=== PATIENT | female | born 1995 | race Caucasian/White ===

== ENCOUNTER 2020-10-25 17:50 | Emergency (ER) | payer OTHER ==
[~2020-10-25] VITALS: Ht 162.6 cm; Wt 75.3 kg
== END 2020-10-25 21:30 | disposition home or self-care (01) ==
LOC: ER 17:50
DX: O26.892 Other specified pregnancy related conditions, second trimester (principal); R21 Rash and other nonspecific skin eruption; Z34.02 Encounter for supervision of normal first pregnancy, second trimester

== ENCOUNTER → 2020-11-03 | Outpatient (CLI) | payer OTHER | END | disposition home or self-care (01) | LOC: PRENATAL 15:30 | PROVIDERS: ATTEND Obstetrics & Gynecology Maternal & Fetal Medicine | DX: O35.0XX1 Maternal care for (suspected) central nervous system malformation in fetus, fetus 1 (principal); O35.3XX1 Maternal care for (suspected) damage to fetus from viral disease in mother, fetus 1; O98.512 Other viral diseases complicating pregnancy, second trimester; Z36.89 Encounter for other specified antenatal screening; Z3A.24 24 weeks gestation of pregnancy ==

== ENCOUNTER 2021-02-04 10:15 | Inpatient (IN) | payer OTHER ==
[~2021-02-04] VITALS: Ht 162.6 cm; Wt 82.1 kg
[2021-02-23] MEDS ORDERED: PRENATAL TABLE1 EAC1 PO (02:49)
== END 2021-02-26 14:36 | disposition home or self-care (01) | DRG 807 ==
LOC: OB/GYN 02-21 10:15 → LDR 02-23 01:57 → OB/GYN 02-23 01:57
PROVIDERS: ADMIT Obstetrics & Gynecology; ATTEND Obstetrics & Gynecology
PROC: 10E0XZZ Delivery of Products of Conception, External Approach (ICD-10-PCS; principal; 2021-02-23)
PROC: 3E033VJ Introduction of Other Hormone into Peripheral Vein, Percutaneous Approach (ICD-10-PCS; 2021-02-23)
PROC: 4A1HXFZ Monitoring of Products of Conception, Cardiac Rhythm, External Approach (ICD-10-PCS; 2021-02-23)
DX: O48.0 Post-term pregnancy (principal); O99.02 Anemia complicating childbirth; D64.9 Anemia, unspecified; Z37.0 Single live birth; Z3A.40 40 weeks gestation of pregnancy